=== PATIENT | male | born 1975 | race African-American/Black ===

== ENCOUNTER 2021-05-21 08:54 | Emergency (ER) | payer OTHER ==
[~2021-05-21] VITALS: Ht 175.3 cm; Wt 74.8 kg
[2021-05-21 09:04] VITALS: BP 137/80
[2021-05-21] MEDS ORDERED: SULFAMETH/TRIMETH 800/160 MG 1 UDTAB TABLET ONE (09:17)
[2021-05-21] MEDS ORDERED: SULFAMETH/TRIMETH 800/160 MG 1 UDTAB TABLET PO ONE (09:30)
[2021-05-21] MEDS ORDERED: IBUP-1955 PO (09:35)
[2021-05-21] MEDS ORDERED: SULF1TAB48 PO (09:35)
[2021-05-21] MEDS ORDERED: CEPH500C2 PO (09:35)
--- NOTE | 2021-05-21 09:38 | NUR ---
Patient discharged to home in stable condition. Written and verbal after care instructions given. Patient verbalizes understanding of instruction.
== END 2021-05-21 09:38 | disposition home or self-care (01) ==
LOC: ER 08:54
DX: M70.22 Olecranon bursitis, left elbow (principal); F12.90 Cannabis use, unspecified, uncomplicated; Z60.2 Problems related to living alone; Y93.89 Activity, other specified
CPT/HCPCS: 73080-TC

== ENCOUNTER 2021-06-11 06:44 | Emergency (ER) | payer OTHER ==
[~2021-06-11] VITALS: Ht 175.3 cm; Wt 79.4 kg
[~2021-06-11 06:44] MED LIST: CEPH500C2 PO; IBUP-1955 PO; SULF1TAB48 PO
[2021-06-11 06:53] VITALS: BP 143/89
--- NOTE | 2021-06-11 06:57 | NUR ---
TO ER BED 1 . BIBS C/O ELBOW PAIN X 2 WEEKS HX OF BURSITIS. TOOK MOTRIN WITH LITTLE RELIEF. PAIN 3/10 ON P/S.
--- NOTE | 2021-06-11 07:03 | NUR ---
Patient discharged to home in stable condition. Written and verbal after care instructions given. Patient verbalizes understanding of instruction. PT ambulatory with a steady gait
== END 2021-06-11 07:04 | disposition home or self-care (01) ==
LOC: ER 06:44
DX: M70.22 Olecranon bursitis, left elbow (principal); M77.02 Medial epicondylitis, left elbow; F17.200 Nicotine dependence, unspecified, uncomplicated; Z79.899 Other long term (current) drug therapy; Y93.89 Activity, other specified